=== PATIENT | female | born 1995 | race Caucasian/White ===

== ENCOUNTER 2023-02-11 16:20 | Inpatient (IN) | payer OTHER ==
[~2023-02-11] VITALS: Ht 165.1 cm; Wt 92.5 kg
[2023-02-11] MEDS ORDERED: LACTATED RINGER'S 1000 ML IV STA (16:46)
[2023-02-11] MEDS ORDERED: LIDOCAINE 1% MDV 20ML VIAL INFIL PRN (16:50)
[2023-02-11] MEDS ORDERED: CARBOPROST TROMETHAMINE 250 MCG/ML AMP IM PRN (16:50)
[2023-02-11] MEDS ORDERED: OXYTOCIN DRIP 30 UNITS in IV 1 EA IV PRN ×6 (16:50)
[2023-02-11] MEDS ORDERED: LR 1,000 ML IV SCH ×2 (16:50→23:00)
[2023-02-11] MEDS ORDERED: OXYTOCIN INJ 10UNITS/ML 1ML VIAL IM PRN (16:50)
[2023-02-11] MEDS ORDERED: METHYLERGONOVINE MALEATE 0.2MG/ML 1ML VIAL IM PRN (16:50)
[2023-02-11] MEDS ORDERED: TRANEXAMIC ACID INJection 1,000 MG in NS 100 ML IV PRN (16:50)
[2023-02-11] MEDS ORDERED: ASPI81CH33 PO (16:55)
[2023-02-11] MEDS ORDERED: PRENTAB9 PO (16:55)
[2023-02-11] MEDS ORDERED: TUMS750C5 PO (16:55)
[2023-02-11] MEDS ORDERED: HOME MED LIST COMPLETE! XX SCH (16:55)
[2023-02-11 17:04] VITALS: BP 131/68
[2023-02-11 17:27] LABS: HEMATOCRIT 31.4 % (36.0-47.0); HEMOGLOBIN 10.2 g/dl (12.0-15.5); MEAN CORPUSCULAR HGB CONC 32.5 g/dl (32.0-36.5); MEAN CORPUSCULAR VOLUME 80.1 fl (80.0-96.0); PLATELET COUNT, AUTOMATED 185 10^3/uL (150-450); RED BLOOD COUNT 3.92 10^6/uL (4.00-5.40); WHITE BLOOD COUNT 7.5 10^3/uL (4.0-10.0)
[2023-02-11] MEDS ORDERED: miSOPROStol 50MCG 1/2 TABLET PO SCH (18:00)
[2023-02-11 18:09] LABS: HIV 1&2 SCREEN NEGATIVE (NEGATIVE)
[2023-02-11 19:45] VITALS: BP 120/59
[2023-02-11 21:00] VITALS: BP 130/68
[2023-02-11 22:21] VITALS: BP 120/66
[2023-02-11] MEDS ORDERED: OXYTOCIN DRIP 30 UNITS in IV 1 EA IV SCH (23:00)
[2023-02-12] VITALS (36 sets, daily range): BP systolic 110–146; BP diastolic 55–90; O2SAT 96–100
[2023-02-12] MEDS ORDERED: LR 500 ML IV PRN (03:05)
[2023-02-12] MEDS ORDERED: ePHEDrine SULFATE 25 MG/5 ML(5MG/ML) SYRINGE IVP PRN (03:05)
[2023-02-12] MEDS ORDERED: EPIDURAL/PCA KEYS XX PRN (03:05)
[2023-02-12] MEDS ORDERED: diphenhydrAMINE 50MG/ML VIAL IV PRN (03:05)
[2023-02-12] MEDS ORDERED: NALOXONE INJ 0.4MG/1ML VIAL IV PRN (03:05)
[2023-02-12] MEDS ORDERED: FENTANYL/ROPIVACAINE/NACL BAG 100 ML EPIDURAL SCH (03:05)
[2023-02-12] MEDS ORDERED: ONDANSETRON 4MG 2ML VIAL IV PRN ×2 (03:05→07:20)
[2023-02-12] MEDS ORDERED: RHOGAM 300MCG (1500IU) INJ IM SCH (07:20)
[2023-02-12] MEDS ORDERED: OXYTOCIN DRIP 30 UNITS in IV 1 EA IV SCH ×4 (07:20)
[2023-02-12] MEDS ORDERED: IBUPROFEN 600MG TAB PO PRN (07:20)
[2023-02-12] MEDS ORDERED: ACETAMINOPHEN TAB 650MG DOSE (2X325MG) PO PRN (07:20)
[2023-02-12] MEDS ORDERED: METHYLERGONOVINE MALEATE 0.2 MG TAB PO PRN (07:20)
[2023-02-12] MEDS ORDERED: MOM 30ML SUSPENSION UDC PO PRN (07:20)
[2023-02-12] MEDS ORDERED: DIBUCAINE 1% OINTMENT 30GM TOP PRN (07:20)
[2023-02-12] MEDS ORDERED: LR 1,000 ML IV SCH (07:20)
[2023-02-12] MEDS: PRENATAL VITAMINS CHEWABLE TABLET PO SCH (09:57)
[2023-02-12] MEDS: IBUPROFEN 800 MG TAB PO PRN ×2 (10:00→19:09)
[2023-02-12] MEDS: ACETAMINOPHEN 500 MG TAB PO PRN (12:48)
[2023-02-12] MEDS: DOCUSATE SODIUM 100MG CAPSULE PO PRN (19:52)
[2023-02-13] MEDS: ACETAMINOPHEN 500 MG TAB PO PRN (00:08)
[2023-02-13] MEDS: IBUPROFEN 800 MG TAB PO PRN (05:32)
[2023-02-13 06:00] VITALS: BP 119/67; O2SAT 97
[2023-02-13] MEDS: PRENATAL VITAMINS CHEWABLE TABLET PO SCH (08:25)
[2023-02-13] MEDS: DOCUSATE SODIUM 100MG CAPSULE PO PRN (08:26)
[2023-02-14] MEDS ORDERED: MEASLES,MUMPS,RUBELLA VACCINE INJ (MMR-II) SC.IMMUN ONE (09:00)
== END 2023-02-13 12:55 | disposition home or self-care (01) | DRG 807 ==
LOC: M LDI 16:20 → M OBS 02-12 09:31
PROVIDERS: ADMIT Obstetrics & Gynecology; ATTEND Obstetrics & Gynecology
PROC: 3E033VJ Introduction of Other Hormone into Peripheral Vein, Percutaneous Approach (ICD-10-PCS; 2023-02-11)
PROC: 10E0XZZ Delivery of Products of Conception, External Approach (ICD-10-PCS; principal; 2023-02-12)
PROC: 0HQ9XZZ Repair Perineum Skin, External Approach (ICD-10-PCS; 2023-02-12)
PROC: 10907ZC Drainage of Amniotic Fluid, Therapeutic from Products of Conception, Via Natural or Artificial Opening (ICD-10-PCS; 2023-02-12)
DX: O70.0 First degree perineal laceration during delivery (principal); Z37.0 Single live birth; Z3A.39 39 weeks gestation of pregnancy